=== PATIENT | male | born 1960 | race Caucasian/White ===

== ENCOUNTER → 2023-09-10 08:13 | Outpatient (REF) | payer OTHER, SELFPAY | LOC: PAVMRI 08:13 | PROVIDERS: ATTENDING PHYSICIAN Internal Medicine Cardiovascular Disease | DX: R55 Syncope and collapse (principal); I47.29 Other ventricular tachycardia; Z84.89 Family history of other specified conditions | CPT/HCPCS: 75561; 75565 ==